=== PATIENT | male | born 1990 | race Caucasian/White ===

== ENCOUNTER 2019-02-27 16:45 | Emergency (ER) | payer BC, MEDICAID ==
[2019-02-27] MEDS ORDERED: PREDNISONE 20 MG TAB PO ONE (16:53)
[2019-02-27] MEDS ORDERED: IPRATROPIUM/ALBUTEROL (0.5MG/3MG) NEB INH ONE (16:53)
[2019-02-27] MEDS ORDERED: AZITHROMYCIN 500 MG TABLET PO ONE (16:55)
--- NOTE | 2019-02-27 17:05 | Emergency Department Record ---
History of Present Illness - General Chief Complaint: Difficulty Breathing Stated Complaint: KRISTEN Time Seen by Provider: 02/27/19 16:48 Source: Patient Mode of Arrival: Ambulatory Limitations: No limitations - History of Present Illness Initial Comments: 28 yo male presents with about two weeks of increase cough and wheeze. The last three days the cough has become productive. No fevers. He is a smoker. He has a history of asthma since he was a child as well. He reports 3-4 episodes of pneumonia in the past. No chest pain. No leg pain or swelling. No nausea, vomiting or diarrhea. MD Complaint: Cough, Shortness of breath -: Week(s) (2) Severity: Moderate Quality: Other Consistency: Intermittent Improves With: Nothing Worsens With: Coughing Known History Of: Asthma Context: Recent URI Associated Symptoms: Cough Treatments Prior to Arrival: None - Related Data Home Oxygen Therapy: No Previous Rx's Medication Instructions Recorded Albuterol Sulfate [Albuterol 8.5 gm IH Q4H PRN #1 hfa.aer.ad 02/27/19 Sulfate Hfa] Azithromycin [Zithromax] 250 mg PO DAILY #4 tab 02/27/19 Prednisone [Prednisone 20Mg] 20 mg PO BID #10 tab 02/27/19 Allergies Allergy/AdvReac Type Severity Reaction Status Date / Time No Known Drug Allergies Allergy Verified 02/27/19 16:53 Review of Systems Constitutional: Denies: Chills, Fever, Malaise, Weakness Eyes: Denies: Eye discharge ENT: Reports: Congestion. Denies: Throat pain Respiratory: Reports: Cough, Dyspnea, Wheezes Cardiovascular: Denies: Chest pain, Palpitations, Syncope Endocrine: Denies: Fatigue, Polydipsia, Polyuria Gastrointestinal: Denies: Abdominal pain, Diarrhea, Nausea, Vomiting, Other Genitourinary: Denies: Dysuria, Frequency, Hematuria Musculoskeletal: Denies: Arthralgia, Back pain, Myalgia Skin: Denies: Bruising, Change in color, Rash Neurological: Denies: Headache Psychiatric: Denies: Anxiety Hematological/Lymphatic: Denies: Easy bleeding, Easy bruising Physical Exam - General General Appearance: Alert, Oriented x3, Cooperative, No acute distress Limitations: No limitations - Head Head exam: Atraumatic, Normal inspection - Eye Eye exam: Normal appearance. negative: Conjunctival injection - ENT ENT exam: Normal exam Ear exam: Normal external inspection Nasal Exam: Normal inspection Mouth exam: Normal external inspection - Neck Neck exam: Normal inspection, Full ROM. negative: Lymphadenopathy - Respiratory Respiratory exam: Decreased breath sounds, Prolonged expiratory, Rhonchi, Wheezes. negative: Normal lung sounds bilaterally, Accessory muscle use, Chest wall tenderness, Rales, Respiratory distress - Cardiovascular Cardiovascular Exam: Regular rate, Normal rhythm, Normal heart sounds - GI/Abdominal GI/Abdominal exam: Soft. negative: Tenderness - Rectal Rectal exam: Deferred - exam: Deferred - Extremities Extremities exam: Normal inspection - Back Back exam: Denies: CVA tenderness (R), CVA tenderness (L) - Neurological Neurological exam: Alert, Oriented X3 - Psychiatric Psychiatric exam: Normal affect, Normal mood. negative: Agitated, Anxious - Skin Skin exam: Dry, Intact, Normal color, Warm Course - Reevaluation(s) Reevaluation #1: 02/27/19 17:08 The vitals were reviewed No hypoxia No flu swab was sent due to duration of symptoms (two weeks, no fever or body aches to suggest influenza) 02/27/19 17:35 Recheck after the Duoneb. Improved air exchange. Will repeat treatment and have respiratory teach and dispense and inhaler since he has not had one in "a while" 02/27/19 17:57 The CXR is negative for acute process. No infiltrate Given his productive sputum he will be discharged on Albuterol, Zithromax, and Prednisone He was strongly encourage to see his PCP. I stressed the importance of longterm follow up and maintenance of asthma Disposition Disposition: Discharge Clinical Impression: Asthma exacerbation Disposition: Home, Self-Care Condition: (1) Good Instructions: Asthma (ED) Additional Instructions: Review this ER visit and the tests performed with your family doctor Call your doctor for the next available follow up appointment Return to the ER for a recheck if worse, any new concerns or questions Take the prescriptions provided as directed Prescriptions: Albuterol Sulfate [Albuterol Sulfate Hfa] 8.5 gm IH Q4H PRN #1 hfa.aer.ad PRN Reason: Wheezing Prednisone [Prednisone 20Mg] 20 mg PO BID #10 tab Azithromycin [Zithromax] 250 mg PO DAILY #4 tab Forms: Patient Portal Access Time of Disposition: 17:59 Quality - Quality Measures Quality Measures: N/A - Blood Pressure Screening Does Patient Have Any of the Following: No Blood Pressure Classification: Pre-Hypertensive BP Reading Systolic Measurement: 125 Diastolic Measurement: 82 Screening for High Blood Pressure: < Pre-Hypertensive BP, F/U Documented > [G8950] Pre-Hypertensive Follow-up Interventions: Referral to alternative/primary care provider.
[2019-02-27] MEDS ORDERED: ALBUTEROL (0.5% CONCENTRATED) 2.5 MG/0.5 ML VIAL.NEB INH ONE (17:34)
--- NOTE | 2019-02-27 17:47 | RADIOLOGY REPORT ---
EXAMINATION: Frontal and Lateral Chest EXAM DATE: 02/27/2019 5:24 PM INDICATION: cough, wheeze FINDINGS: Frontal and lateral views show clear lungs, normal heart size, and normal hilar and mediast inal structures. IMPRESSION: Normal chest. Dictated by: Talat Alston MD on 02/27/2019 5:43 PM. .
== END 2019-02-27 18:12 | disposition home or self-care (01) ==
LOC: ER 16:45
DX: J45.901 Unspecified asthma with (acute) exacerbation (principal); R06.02 Shortness of breath; F17.210 Nicotine dependence, cigarettes, uncomplicated
CPT/HCPCS: 71046; 94640; 94664; 99284; J7512